=== PATIENT | male | born 1975 | race Caucasian/White ===

== ENCOUNTER 2017-11-09 23:08 | Emergency (ER) | payer OTHER ==
[~2017-11-09] VITALS: Ht 175.3 cm; Wt 105.0 kg
[2017-11-09 23:11] VITALS: BP 159/107; PULSE 71; RESP 18; TEMP 97.7; O2SAT 97
[2017-11-10] MEDS ORDERED: BACT800T5 PO (01:13)
[2017-11-10] MEDS ORDERED: DOXY100C PO (01:13)
[2017-11-10] MEDS ORDERED: TETANUS/DIPHTHERIA TOXOID ADULT 0.5 ML VIAL IM ONE (01:15)
[2017-11-10] MEDS ORDERED: SULFAMETHOXAZOLE-TRIMETHOPRIM DS 800-160 MG TAB PO ONE (01:15)
[2017-11-10] MEDS ORDERED: DOXYCYCLINE HYCLATE 100 MG CAP PO ONE (01:15)
--- NOTE | 2017-11-10 01:22 | PD ---
HPI Chief Complaint: Skin Problem Time Seen by Provider: 01:07 Travel History International Travel<30 days: No Contact w/Intl Traveler<30days: No Traveled to known affect area: No History of Present Illness HPI 42-year-old white male presents emergency department we will complains of pain and swelling to his right index finger over the past 24 hours. He states that he noticed yesterday a small pustular lesion on his finger similar to what he would report as a fire ant bite. Over the last 24 hours he has had 2 lesions develop which have ruptured and started draining purulent material. He states that he has had redness and swelling in the finger into the proximal for him. He denies seeing any insects. He denies any direct trauma. He denies any numbness or tingling. No fever chills. No nausea vomiting. Symptoms are mild to moderate. No exacerbating or alleviating factors. He has not had a tetanus shot over 5 years. PFSH Past Medical History Medical History: Denies Significant Hx Immunizations Current: Yes Tetanus Vaccination: > 5 Years Influenza Vaccination: No Past Surgical History Surgical History: No Previous Surgery Social History Alcohol Use: No Tobacco Use: No Substance Use: No Allergies-Medications (Allergen,Severity, Reaction): Coded Allergies: No Known Allergies (Unverified , 11/09/17) Reported Meds & Prescriptions Reported Meds & Active Scripts Active Doxycycline Hyclate 100 Mg Cap 100 Mg PO BID Bactrim DS (Sulfamethoxazole-Trimethoprim) 800-160 Mg Tab 1 Tab PO TID 10 Days Review of Systems General / Constitutional: No: Fever Eyes: No: Visual changes HENT: No: Headaches Cardiovascular: No: Chest Pain or Discomfort Respiratory: No: Shortness of Breath Gastrointestinal: No: Abdominal Pain Genitourinary: No: Dysuria Musculoskeletal: Positive: Limited ROM, Edema, Pain, No: Arthralgias, Weakness Skin: Positive Lesions, No Rash Neurologic: No: Weakness Psychiatric: No: Depression Endocrine: No: Polydipsia Hematologic/Lymphatic: No: Easy Bruising Physical Exam Narrative GENERAL: This is a well-nourished, well-developed patient, in no apparent distress. SKIN: No rashes, ecchymoses or lesions. Warm and dry. HEAD: Atraumatic. Normocephalic. EYES: PERRL, EOMI, no discharge or injection. No scleral icterus. EARS: Clear NOSE: Nasal turbinates appear normal. THROAT: Mucosa pink and moist. Airway patent. NECK: Trachea midline. supple, moves head freely. LUNGS: Clear to auscultation. CV: Regular in rhythm. ABDOMEN: Soft nontender. EXT: No clubbing cyanosis or edema.. Examination of the right hand reveals mild swelling of the right index finger. He has 2 open draining pustular lesions on the lateral aspect of the finger. There is no involvement of the tendon or joint. He is able to fully extend but has slight limited flexion due to pain and swelling. His cap refill is intact and he has good sensation. Data Data Last Documented VS Vital Signs Date Time Temp Pulse Resp B/P (MAP) Pulse Ox O2 Delivery O2 Flow Rate FiO2 11/09/17 23:11 97.7 71 18 159/107 (124) 97 Orders Orders Tetanus/Diphtheria Tox Adult (Tetanus/Di (11/10/17 01:15) Sulfamet-Trimeth Ds 800-160 Mg (Bactrim (11/10/17 01:15) Doxycycline (Vibramycin) (11/10/17 01:15) Ed Discharge Order (11/10/17 01:14) MDM Medical Decision Making Medical Screen Exam Complete: Yes Emergency Medical Condition: Yes Medical Record Reviewed: Yes Differential Diagnosis MDM: High Differential diagnoses: Abscess, folliculitis, cellulitis, lymphangitis, abrasion, contact dermatitis Narrative Course The patient is given tetanus immunization. His wounds are cleansed and dressed. Patient is given Bactrim DS No. 2 p.o., doxycycline 100 mg p.o. This is right index finger cellulitis, superficial abscess Diagnosis Primary Impression: Right index finger cellulitis Additional Impression: Right index finger abscess Patient Instructions: General Instructions Departure Forms: Tests/Procedures, Work Release Special Instructions: Right index finger cellulitis no work 2 days. Additional Instructions: Rest. Elevation. keep clean and dry. Daily wound care with soap, water and Neosporin. Three Advil every 6 hours. Doxycycline, Septra DS Follow-up with your doctor in the next 1-2 days.. Return to the ER for any problems. Med/Other Pt SpecificInfo: Prescription(s) given, Wound Care Scripts Doxycycline Hyclate (Doxycycline Hyclate) 100 Mg Cap 100 MG PO BID for Infection, #20 CAP 0 Refills Prov: Regina Sepulveda DO 11/10/17 Sulfamethoxazole-Trimethoprim (Bactrim DS) 800-160 Mg Tab 1 TAB PO TID for Infection for 10 Days, TAB 0 Refills Prov: Regina Sepulveda DO 11/10/17 Disposition: 01 DISCHARGE HOME Condition: Stable Cr Massey November 10, 2017 01:22
== END 2017-11-10 01:31 | disposition home or self-care (01) ==
LOC: NEPD 23:08
DX: L03.011 Cellulitis of right finger (principal); L02.511 Cutaneous abscess of right hand; Z23 Encounter for immunization
CPT/HCPCS: 90471; 90714